=== PATIENT | male | born 2005 | race Two or more races ===

== ENCOUNTER 2025-05-23 02:29 | Emergency (ER) | payer OTHER ==
[~2025-05-23] VITALS: Ht 180.3 cm; Wt 97.7 kg
[2025-05-23 02:53] VITALS: BP 127/73; PULSE 103; RESP 16; TEMP 98.6; O2SAT 98
[2025-05-23] MEDS: ACETAMINOPHEN 500 MG TABLET PO ONE (04:34)
[2025-05-23] MEDS: IBUPROFEN 400 MG TABLET PO ONE (04:48)
== END 2025-05-23 05:54 | disposition home or self-care (01) ==
LOC: EMS 02:31
DX: S52.501A Unspecified fracture of the lower end of right radius, initial encounter for closed fracture (principal); S00.01XA Abrasion of scalp, initial encounter; W07.XXXA Fall from chair, initial encounter; Y93.89 Activity, other specified; Y92.89 Other specified places as the place of occurrence of the external cause; Y99.8 Other external cause status
CPT/HCPCS: 12001; 99284; 73090-TC; 73130-TC; Z7502; Z7610